=== PATIENT | male | born 2000 | race Caucasian/White ===

== ENCOUNTER 2023-04-02 18:12 | Emergency (ER) | payer OTHER, BC ==
--- NOTE | 2023-04-02 19:40 | RAD REPORT ---
EXAM DESCRIPTION: CT - [id number] - 04/02/2023 6:57 pm CLINICAL HISTORY: Headache;Trauma COMPARISON: No comparisons TECHNIQUE: Axial thin cut noncontrast CT images of the head were obtained. Axial thin cut noncontrast CT images of the cervical spine were obtained. Multiplanar reformatted images were generated and reviewed. All CT scans are performed using dose optimization technique as appropriate and may include automated exposure control or mA/KV adjustment according to patient size. FINDINGS: CT HEAD WITHOUT CONTRAST: No acute hemorrhage, hydrocephalus or extra-axial collection is identified.No areas of brain edema or midline shift. The paranasal sinuses and mastoids are clear.The calvarium is intact. CT CERVICAL SPINE WITHOUT CONTRAST: No fracture or subluxation.No prevertebral soft tissues swelling is identified. IMPRESSION: No acute traumatic intracranial or cervical spine findings.
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
[2023-04-02 20:19] VITALS: BP 137/93; TEMP 97.8; O2SAT 99
== END 2023-04-02 20:05 | disposition home or self-care (01) ==
LOC: ER 18:12
DX: M54.2 Cervicalgia (principal); S09.90XA Unspecified injury of head, initial encounter; V49.40XA Driver injured in collision with unspecified motor vehicles in traffic accident, initial encounter; Z28.310 Unvaccinated for COVID-19
CPT/HCPCS: 70450; 72125; 99284